=== PATIENT | female | born 1930 | race Caucasian/White ===

== ENCOUNTER 2016-10-02 05:48 | Emergency (ER) | payer MEDICARE ==
[2016-10-02 06:13] LABS: ABSOLUTE NEUTROPHIL COUNT 4.7 K/mm3 (1.8-7.7); BASO # 0.1 K/mm3 (0.0-0.2); BASO % 1.1 % (0.2-1.0); EOS # 0.4 (0.0-0.5); EOS % 4.9 % (0.9-2.9); HEMATOCRIT 41.8 % (37.0-47.0); HEMOGLOBIN 12.9 gm/l (12.0-16.0); IMM NEUT% 0.2 % (0-1); LYMPH # 2.4 (1.0-4.8); LYMPH % 28.2 % (15-45); MEAN CELL VOLUME 97.2 fl (81.0-99.0); MEAN CORPUSCULAR HGB CONC 30.9 g/dl (33.0-37.0); MEAN PLATELET VOLUME 9.1 fl (7.4-10.4); MONO # 0.8 (0.0-0.8); NEUT % 56.6 % (43-75); PLATELET COUNT 298 K/mm3 (130-400); RED CELL DISTRIBUTION WIDTH 13.2 % (11.5-14.5)
[2016-10-02] MEDS ORDERED: PREDNISONE 20 MG TABLET ONE (06:29)
[2016-10-02] MEDS ORDERED: ALBUTEROL/IPRATROPIUM 2.5/0.5 MG 3 ML/EACH DOSE ONE (06:30)
[2016-10-02 06:32] LABS: ALB/GLOB RATIO 1.6 (>1.0); ALBUMIN 4.2 gm/dL (3.5-5.7); CALCIUM 9.3 mg/dL (8.6-10.3)
[2016-10-02 06:51] LABS: TROPONIN I < 0.01 ng/ml (0.0-0.06)
[2016-10-02 07:07] LABS: FREE T4 0.94 ng/dL (0.58-1.64)
== END 2016-10-02 08:31 | disposition home or self-care (01) ==
LOC: ED 05:48
DX: R00.2 Palpitations (principal); J44.9 Chronic obstructive pulmonary disease, unspecified; I45.10 Unspecified right bundle-branch block; F17.210 Nicotine dependence, cigarettes, uncomplicated
CPT/HCPCS: 83880; 85025; 80053; 84439; 84484; 94640; 99283; 93005; 99284; J7512